=== PATIENT | male | born 1945 | race Caucasian/White ===

== ENCOUNTER → 2020-04-13 08:58 | Outpatient (BNVA) | payer MEDICARE, SELFPAY | PROVIDERS: PCP Registered Nurse; Visit Provider Registered Nurse | DX: Z13.6 Encounter for screening for cardiovascular disorders (principal) | CPT/HCPCS: 80053; 80061; 81000; 85025 ==

== ENCOUNTER → 2020-04-27 13:13 | Outpatient (BNVA) | payer MEDICARE, SELFPAY | PROVIDERS: PCP Registered Nurse; Visit Provider Registered Nurse | DX: R31.9 Hematuria, unspecified (principal) | CPT/HCPCS: 81000 ==

== ENCOUNTER → 2020-06-12 08:10 | Outpatient (BNVA) | payer MEDICARE, SELFPAY | PROVIDERS: PCP Registered Nurse; Visit Provider Surgery | DX: Z86.010 Personal history of colon polyps (principal); Z20.822 Contact with and (suspected) exposure to COVID-19 | CPT/HCPCS: 87635 ==

== ENCOUNTER 2020-06-17 06:37 | Day surgery (SDC) | payer MEDICARE, SELFPAY ==
[2020-06-16 13:51] VITALS: BMI 28.7
--- NOTE | 2020-06-17 07:04 | P.ANESASSM_ITS ---
Pre-Anesthetic Assessment Pre-Anesthetic Assessment: Height/Weight: Height 1.73 m Weight 85.729 kg Proposed Procedure: Operation Date: 06/17/20 08:15 Proposed Procedures p Colonoscopy 07982 z86.010(Not Applicable) - Kt Horta MD Was Beta Chelsey taken within 24 hours: N/A Was Clonidine taken within 24 hours: N/A Social: Social History: No alcohol and No tobacco Exam: Pre-Anes Outpt Exam: alert, oriented x 3, clear to auscultation bilaterally and regular rate & rhythm Airway: Submandibular: WNL Cervical ROM: WNL MP: 3 Dentition: Full History/ROS: No significant history except as noted Anesthetic Plan: ASA status: 1 Anesthesia: MAC Risk of > 500 ml blood loss (7ml/kg in children): No PFSH Anesthesia PFSH: Medical History (Updated 05/09/20 @ 04:54 by Kt Horta MD) Family history of colon cancer Surgical History History of cataract surgery 2013 Family History Father Colon cancer Brother Chronic kidney disease (CKD) Parkinson disease Mother Heart disease Social History Smoking and tobacco status: never smoked Alcohol intake: never Adopted: No Caregiver/support person: No Lives independently: No Household members: spouse Marital status: service: Yes status: Discharged branch: [employer] History of recent travel: No Sexually active: Yes Current gender identity: Male Data Anesthesia Cardiac Studies: No Data to Display
[2020-06-17 07:23] VITALS: BP 129/82; PULSE 65; RESP 16; TEMP 36.4; O2SAT 96
--- NOTE | 2020-06-17 07:58 | P.HP_ITS ---
Same Day Surgery H&P Indication for Procedure/HPI DATE OF PROCEDURE: June 17, 2020 CHIEF COMPLAINT/INDICATIONFOR SURGICAL PROCEDURE: History of colon polyp PREOP DIAGNOSIS: History of colon polyps PLANNED PROCEDRUE: Operation Date: 06/17/20 08:15 Proposed Procedures p Colonoscopy 31345 z86.010(Not Applicable) - Kt Horta MD This is a pleasant 75 years old gentleman presents with history of: Polyps that were removed about 5 years ago. And also reports that his father had history of colon cancer around the age of 80. Patient denies any bleeding per rectum when asked or unintentional weight loss.Patient is referred to me for Surveillance colonoscopy. Interim history 06/17/2020 Patient comes today for surveillance colonoscopy. ROS All systems have been reviewed negative except as per the above or per problem list Medications/Allergies* Home Medications Medication Instructions Recorded Confirmed Type acetaminophen 325 mg capsule 325 mg PO DAILY PRN 04/13/20 06/17/20 History aspirin 81 mg tablet,delayed 81 mg PO DAILY 04/13/20 06/17/20 History release Allergies/Adverse Reactions Allergy/AdvReac Type Severity Reaction Status Date / Time No Known Allergies Allergy Verified 06/17/20 08:02 Pertinent History/Comorbid Conditions* Medical History (Updated 05/09/20 @ 04:54 by Kt Horta MD) Family history of colon cancer Surgical History (Updated 04/13/20 @ 08:44 by CONNIE Pruett) History of cataract surgery 2014 Family History (Updated 04/13/20 @ 08:23 by Valeria Benito LPN) Colon cancer Father Heart disease Mother Chronic kidney disease (CKD) Brother Parkinson disease Brother Social History Smoking and tobacco status: never smoked Alcohol intake: never Adopted: No Caregiver/support person: No Lives independently: No Household members: spouse Marital status: service: Yes status: Discharged branch: [employer] History of recent travel: No Sexually active: Yes Current gender identity: Male Pertinent Exam Findings alert, oriented x 3, clear to auscultation bilaterally, regular rate & rhythm and procedure specific exam findings (Abdominal examination nontender nondistended soft) Recommendations Surgery/Procedure today (Surveillance colonoscopy) Other Plans: Plan of care; After thorough history and physical examination and reviewing the chart, plan to perform surveillance colonoscopy. I discussed with the patient in details the risks,benefits,alternatives and indications.The risk of aspiration, bleeding, soft tissue injury, perforation of the colon and other potential concomitant complications were explained to the patient in details,also the potential need for Laproscoy/Laparotomy to repair any related complications including but not limited to colectomy and or Closot ryne.The patient understood this well and did agree to proceed. Rationale was carefully and clearly discussed with the patient.Appropriate informed consent have been reviewed and signed All questions have been answered and all concerns have been addressed to patient's satisfaction. Verbal and written Instructions were given to the patient for colonoscopy prep Coding Level of Care Code Acute Pollution Control Chemist for Rafita Ricci
[2020-06-17] MEDS: sodium chloride 0.9% 1,000 ML 30 ML IV (08:04)
[2020-06-17 08:48] VITALS: BP 132/79; PULSE 62; RESP 16; TEMP 36.1; O2SAT 95
[2020-06-17 09:06] VITALS: BP 144/91; PULSE 63; RESP 18; O2SAT 97
--- NOTE | 2020-06-17 11:58 | ANE.PACU2 ---
Inpatient post-anesthesia follow up: Airway intact: Yes Vital signs: Temperature 97 F Pulse Rate 63 Respiratory Rate 18 Blood Pressure 144/91 Pulse Oximetry 97 Oxygen Delivery Me thod Room Air Oxygen Flow Rate Fraction of Inspir ed Oxygen Hydration adequate: Yes Nausea and vomiting: No Pain level: 1 Mental status: Baseline
== END 2020-06-17 09:20 | disposition home or self-care (01) ==
PROVIDERS: PCP Registered Nurse; Visit Provider Surgery
PROC: 0DJD8ZZ Inspection of Lower Intestinal Tract, Via Natural or Artificial Opening Endoscopic (ICD-10-PCS; CPT 45378; principal; 2020-06-17 08:15)
DX: Z12.11 Encounter for screening for malignant neoplasm of colon (principal); Z86.010 Personal history of colon polyps; K57.30 Diverticulosis of large intestine without perforation or abscess without bleeding; Z80.0 Family history of malignant neoplasm of digestive organs; Z79.82 Long term (current) use of aspirin
CPT/HCPCS: 45378; 96360; J2704; J7030

== ENCOUNTER → 2021-08-18 14:34 | Outpatient (BNVA) | payer MEDICARE, SELFPAY | PROVIDERS: PCP Registered Nurse; Visit Provider Surgery | DX: K42.9 Umbilical hernia without obstruction or gangrene (principal) | CPT/HCPCS: 99213 ==

== ENCOUNTER 2021-08-30 07:45 | Day surgery (SDC) | payer MEDICARE, SELFPAY ==
[2021-08-27 11:21] VITALS: BMI 27.5
[2021-08-30] VITALS (9 sets, daily range): BP systolic 98–158; BP diastolic 66–103; PULSE 59–73; RESP 16–18; TEMP 36.1–36.6; O2SAT 92–99
[2021-08-30] MEDS: sodium chloride 0.9% 1,000 ML 30 ML IV (08:18)
[2021-08-30] MEDS: acetaminophen 1,000 MG/100 ML PIGGYBACK 400 MG IV (08:19)
--- NOTE | 2021-08-30 08:40 | P.ANESASSM_ITS ---
Pre-Anesthetic Assessment Height/Weight: Height 1.73 m Weight 82.1 kg Temp Pulse Resp BP Pulse Ox 97.8 F 69 18 158/103 99 08/30/21 08:05 08/30/21 08:05 08/30/21 08:05 08/30/21 08:05 08/30/21 08:05 Preop Diagnosis: Umbilical hernia Operation Date: 08/30/21 09:40 Proposed Procedures p open umblicial hernia repair with mesh 92478,K42.9(Not Applicable) - Kt Horta MD Familial anesthetic complications: None Was Beta Chelsey taken within 24 hours: N/A Was Clonidine taken within 24 hours: N/A Last intake: Intake Last Liquid Date 08/29/21 Last Liquid Time 20:30 Last Solid Date 08/29/21 Last Solid Time 20:30 Social No alcohol and No tobacco Exam alert, oriented x 3, clear to auscultation bilaterally and regular rate & rhythm Airway Mallampati: Class III Dentition: full Pulmonary None reported CV/HEM None reported None reported Hepatic None reported GI None reported Metabolic None reported Musc/skel None reported Neuropsych None reported Anesthetic Plan ASA status: 1 Anesthesia: MAC Risk of > 500 ml blood loss (7ml/kg in children): No Medications/Allergies Home Medications Medication Instructions Recorded Confirmed Last Taken Type acetaminophen 325 mg capsule 325 mg PO DAILY PRN 04/13/20 08/30/21 08/27/21 History (Tylenol) aspirin 81 mg tablet,delayed 81 mg PO DAILY 04/13/20 08/30/21 08/27/21 History release Allergies Allergy/AdvReac Type Severity Reaction Status Date / Time No Known Allergies Allergy Verified 08/30/21 08:01 Current Medications Generic Name Dose Route Start Last Admin Trade Name Freq PRN Reason Stop Dose Admin Sodium Chloride 1,000 mls @ 30 mls/hr 08/30/21 08:00 08/30/21 08:18 Sodium Chloride 0.9% IV 08/31/21 07:59 30 mls/hr .Q24H DAKOTAH Administration PFSH Anesthesia Medical History Diverticulosis Encounter for screening colonoscopy Family history of colon cancer History of colon polyps Surgical History History of cataract surgery 2013 Family History Father Colon cancer Brother Chronic kidney disease (CKD) Parkinson disease Mother Heart disease Social History Smoking and tobacco status: never smoked Alcohol intake: never Adopted: No Caregiver/support person: No Lives independently: No Household members: spouse Marital status: service: Yes status: Discharged branch: [employer] History of recent travel: No Sexually active: Yes Current gender identity: Male Data Anesthesia Cardiac Studies: No Data to Display
--- NOTE | 2021-08-30 09:04 | W.PM.OPSUD ---
Surgery/Procedure H&P Update DATE OF PROCEDURE: August 30, 2021 DATE H&P PERFORMED: 08/18/21 H&P UPDATE INFORMATION: I have reviewed H&P completed within last 30 days, I have examined patient prior to procedure and No changes to prior documentation PREOP DIAGNOSIS: Umbilical hernia PRIMARY INDICATION FOR PROCEDURE: The same PLANNED PROCEDURE: Operation Date: 08/30/21 09:40 Proposed Procedures p open umblicial hernia repair with mesh [id number],K42.9(Not Applicable) - Kt Horta MD
[2021-08-30] MEDS: lidocaine 2% INJ 20 mL INJECTION (09:37)
--- NOTE | 2021-08-30 09:58 | P.OP_ITS ---
Operative Report Date of procedure: August 30, 2021 Pre-op diagnosis: Preop Diagnosis Umbilical hernia Post-op findings: The same Procedure done: Open umbilical hernia repair without mesh placement Specimens removed/disposition: Hernia sac and contents Surgeon: Kt Horta MD Friction Welding Machine Operator: Dillon Mendoza Circulating nurse Valeria Anesthesia: General (LMA WET END SUPERVISOR Melanie) Estimated blood loss: 5 Procedure: Patient was identified in holding area and the site of the hernia was marked by me ,Patient was brought then to the operating room, LMA was placed by the anesthesia provider.prophylactic IV antibiotics were given per protocol Timeout was done verifying the patient's name/date of /planned procedure and destination after the procedure, all were in agreement. SCDs confirmed to be functioning, preoperative antibiotics administered per protocol, and beta bao protocol was confirmed. Prep and drape of the abdomen was done under the usual sterile technique. I started by infraumbilical skin incision,and dissection was carried till the hernia sac was identified and opened,following that trimming of the edges and excising the sac,were sac and contents were sent for pathology.At that point the fascial defect is about inch in diameter, after freeing all the adhesions and freeing the overlying fat on top of the fascia,to facilitate primary closure, under direct visualization I was able to use #1 PDS to close the defect primarily, as an interrupted figure of 8 PDS sutures,copious and through irrigation of the wound was then achieved and hemostasis. Followed by deep subdermal 2-0 Vicryl then 4-0 Monocryl for the skin Lidocaine 2% was used for local infiltration.Surical glue was then applied.Followed by appropraie size Abdominal Binder. Counts of sponges,needles and instruments were completed at the end of the procedure and specimen was verified. Patient tolerated the procedure well and was taken to the recovery area in stable condition after Extubation I was present for the whole entire procedure
[2021-08-30] MEDS: HYDROcodone-acetaminophen 5-325 mg Tablet 1 TAB PO (11:03)
--- NOTE | 2021-08-30 16:02 | ANE.PACU2 ---
Inpatient post-anesthesia follow up: Airway intact: Yes Vital signs: Temperature 97 F Pulse Rate 70 Respiratory Rate 16 Blood Pressure 134/79 Pulse Oximetry 93 Oxygen Delivery Me thod Room Air Oxygen Flow Rate 8 Fraction of Inspir ed Oxygen Hydration adequate: No Nausea and vomiting: No Pain level: 2 Mental status: Baseline
== END 2021-08-30 11:12 | disposition home or self-care (01) ==
PROVIDERS: Visit Provider Surgery
PROC: (CPT 49585; principal; 2021-08-30 09:40)
DX: K42.9 Umbilical hernia without obstruction or gangrene (principal); Z80.0 Family history of malignant neoplasm of digestive organs; Z86.010 Personal history of colon polyps
CPT/HCPCS: 49585; 88302; J1100; J2405; J2704; J3010; J3490; J7030

== ENCOUNTER → 2021-09-02 15:51 | Outpatient (BNVA) | payer MEDICARE, SELFPAY | PROVIDERS: PCP Registered Nurse; Visit Provider Surgery | DX: Z09 Encounter for follow-up examination after completed treatment for conditions other than malignant neoplasm (principal) | CPT/HCPCS: 99024 ==

== ENCOUNTER → 2021-09-15 13:16 | Outpatient (BNVA) | payer MEDICARE, SELFPAY | PROVIDERS: PCP Registered Nurse; Visit Provider Surgery | DX: Z98.890 Other specified postprocedural states (principal) | CPT/HCPCS: 99024 ==

== ENCOUNTER → 2021-11-17 10:53 | Outpatient (BNVA) | payer MEDICARE, SELFPAY | PROVIDERS: PCP Registered Nurse; Visit Provider Surgery | DX: Z09 Encounter for follow-up examination after completed treatment for conditions other than malignant neoplasm (principal) | CPT/HCPCS: 99024 ==

== ENCOUNTER → 2022-03-25 11:55 | Outpatient (BNVA) | payer MEDICARE, SELFPAY | PROVIDERS: PCP Registered Nurse; Visit Provider Nurse Practitioner Family | DX: R68.89 Other general symptoms and signs (principal); Z20.822 Contact with and (suspected) exposure to COVID-19 | CPT/HCPCS: 87400; 87426 ==

== ENCOUNTER → 2024-02-07 14:27 | Outpatient (BNVA) | payer MEDICARE, SELFPAY | PROVIDERS: PCP Nurse Practitioner; Referring Provider Nurse Practitioner; Visit Provider Nurse Practitioner | DX: M47.818 Spondylosis without myelopathy or radiculopathy, sacral and sacrococcygeal region (principal) | CPT/HCPCS: 72100 ==